=== PATIENT | male | born 1980 | race Caucasian/White ===

== ENCOUNTER 2018-07-30 19:04 | Emergency (ER) | payer OTHER ==
[~2018-07-30] VITALS: Ht 167.6 cm; Wt 83.1 kg
[2018-07-30 19:17] VITALS: Ht 167.6 cm; Wt 83.1 kg
[2018-07-30 22:44] VITALS: BP 125/89
== END 2018-07-30 22:44 | disposition home or self-care (01) ==
LOC: ED 19:04
DX: M54.6 Pain in thoracic spine (principal); I10 Essential (primary) hypertension
CPT/HCPCS: J1885